=== PATIENT | female | born 1990 | race Caucasian/White ===

== ENCOUNTER 2016-06-30 14:55 | Emergency (ER) | payer OTHER ==
[~2016-06-30] VITALS: Ht 172.7 cm; Wt 80.0 kg
[2016-06-30 14:57] VITALS: BP 121/57; PULSE 57; RESP 12; TEMP 98; O2SAT 97
[2016-06-30] MEDS ORDERED: IBUP800T23 PO (15:35)
[2016-06-30] MEDS ORDERED: ROBA500T PO (15:35)
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
== END 2016-06-30 16:03 | disposition home or self-care (01) ==
LOC: NETRI 14:55
DX: Z04.1 Encounter for examination and observation following transport accident (principal)
CPT/HCPCS: 99283

== ENCOUNTER 2017-02-16 01:48 | Inpatient (IN) | payer SELFPAY ==
[2017-02-16] VITALS (8 sets, daily range): BP systolic 103–128; BP diastolic 55–77; PULSE 50–94; RESP 16–24; TEMP 98.5–99.3; O2SAT 98–100
[~2017-02-16] VITALS: Ht 172.7 cm; Wt 72.3 kg
[~2017-02-16 01:48] MED LIST: IBUP1TAB7 PO; ROBA500T PO
--- NOTE | 2017-02-16 02:04 | PD ---
HPI Chief Complaint: suicidal ideation Time Seen by Provider: 01:57 Travel History International Travel<30 days: No Contact w/Intl Traveler<30days: No Traveled to known affect area: No History of Present Illness HPI 26 year-old female presents to the emergency department by private transportation the care of her friend for evaluation of wanting to harm herself. Patient admits to wanting to jump off a bridge because she "doesn't want to be here anymore". Patient admits to previous history of suicidal ideation and suicide attempts with cutting herself an overdose. Patient denies any substance ingestion. She takes no prescription medications. Patient has history of depression and hypothyroidism. Last menstrual period was 1 month ago and normal for her; patient denies . Patient denies any previous surgeries. Patient states she takes no medications. Patient has been depressed for the past few days. Patient phoned her friend to let her know that she wanted to harm herself and was brought to the emergency room for evaluation. Patient is not sure but suspect she has a family history of mental health issues. Patient is able to identify exacerbating or alleviating factors. [facility] Past Medical History Narrative Medical Depression suicidal ideation cutting suicide attempt with overdose; denies substance use; nursing notes reviewed Social History Tobacco Use: No Allergies-Medications (Allergen,Severity, Reaction): Coded Allergies: No Known Allergies (Unverified , 02/16/17) Reported Meds & Prescriptions Reported Meds & Active Scripts Active Ibuprofen 800 Mg Tab 800 Mg PO Q6HR PRN Robaxin (Methocarbamol) 500 Mg Tab 500 Mg PO QID PRN Review of Systems Except as stated in HPI: all other systems reviewed are Neg General / Constitutional: No: Fever, Chills Eyes: No: Diploplia, Visual changes HENT: No: Headaches, Neck Pain Cardiovascular: No: Chest Pain or Discomfort Respiratory: No: Shortness of Breath Gastrointestinal: No: Nausea, Vomiting, Diarrhea, Abdominal Pain Genitourinary: No: Dysuria, Flank Pain Musculoskeletal: No: Myalgias, Arthralgias Skin: No Rash Neurologic: No: Weakness, Dizziness, Syncope Psychiatric: Positive: Anxiety, Depression, No: Substance Abuse, Homicidal Ideation Endocrine: No: Heat Intolerance Hematologic/Lymphatic: No: Easy Bruising Physical Exam Narrative GENERAL: Well-developed well-nourished cooperative female in no acute distress no respiratory distress; GCS 15 SKIN: Warm and dry. HEAD: Atraumatic. Normocephalic. EYES: Pupils equal and round. No scleral icterus. No injection or drainage. ENT: No nasal bleeding or discharge. Mucous membranes pink and moist. NECK: Trachea midline. No JVD. CARDIOVASCULAR: Regular rate and rhythm. RESPIRATORY: No accessory muscle use. Clear to auscultation. Breath sounds equal bilaterally. GASTROINTESTINAL: Abdomen soft, non-tender, nondistended. Hepatic and splenic margins not palpable. MUSCULOSKELETAL: Extremities without clubbing, cyanosis, or edema. No obvious deformities. NEUROLOGICAL: Awake and alert. No obvious cranial nerve deficits. Motor grossly within normal limits. Five out of 5 muscle strength in the arms and legs. Normal speech. PSYCHIATRIC: Appropriate mood and affect; insight and judgment normal. Data Data Last Documented VS Vital Signs Date Time Temp Pulse Resp B/P (MAP) Pulse Ox O2 Delivery O2 Flow Rate FiO2 02/16/17 02:06 99.3 52 16 117/64 (81) 100 Room Air Orders Orders Complete Blood Count With Diff (02/16/17 01:57) Comprehensive Metabolic Panel (02/16/17 01:57) Thyroid Stimulating Hormone (02/16/17 01:57) Urinalysis - C+S If Indicated (02/16/17 01:57) Ed Urine Pregnancytest Poc (02/16/17 01:57) Psych Screen (02/16/17 01:57) Drug Screen, Random Urine (02/16/17 01:57) Alcohol (Ethanol) (02/16/17 01:57) Salicylates (Aspirin) (02/16/17 01:57) Tylenol (Acetaminophen) (02/16/17 01:57) Labs Laboratory Tests Test 02/16/17 02:15 White Blood Count 5.9 TH/MM3 Red Blood Count 4.66 MIL/MM3 Hemoglobin 12.4 GM/DL Hematocrit 37.7 % Mean Corpuscular Volume 80.8 FL Mean Corpuscular Hemoglobin 26.6 PG Mean Corpuscular Hemoglobin Concent 32.9 % Red Cell Distribution Width 12.7 % Platelet Count 156 TH/MM3 Mean Platelet Volume 9.6 FL Neutrophils (%) (Auto) 61.2 % Lymphocytes (%) (Auto) 27.4 % Monocytes (%) (Auto) 8.4 % Eosinophils (%) (Auto) 1.8 % Basophils (%) (Auto) 1.2 % Neutrophils # (Auto) 3.6 TH/MM3 Lymphocytes # (Auto) 1.6 TH/MM3 Monocytes # (Auto) 0.5 TH/MM3 Eosinophils # (Auto) 0.1 TH/MM3 Basophils # (Auto) 0.1 TH/MM3 CBC Comment DIFF FINAL Differential Comment Urine Color YELLOW Urine Turbidity CLEAR Urine pH 5.5 Urine Specific [place] 1.016 Urine Protein NEG mg/dL Urine Glucose (UA) NEG mg/dL Urine Ketones NEG mg/dL Urine Occult Blood NEG Urine Nitrite NEG Urine Bilirubin NEG Urine Leukocyte Esterase NEG Urine WBC 3-5 /hpf Urine Squamous Epithelial Cells 0-5 /hpf Urine Bacteria RARE /hpf Urine Mucus OCC /lpf Microscopic Urinalysis Comment CULT NOT INDICATED Blood Urea Nitrogen 13 MG/DL Creatinine 0.79 MG/DL Random Glucose 105 MG/DL Total Protein 7.1 GM/DL Albumin 4.0 GM/DL Calcium Level 8.9 MG/DL Alkaline Phosphatase 61 U/L Aspartate Amino Transf (AST/SGOT) 13 U/L Alanine Aminotransferase (ALT/SGPT) 20 U/L Total Bilirubin 0.3 MG/DL Sodium Level 140 MEQ/L Potassium Level 3.7 MEQ/L Chloride Level 109 MEQ/L Carbon Dioxide Level 25.7 MEQ/L Anion Gap 5 MEQ/L Estimat Glomerular Filtration Rate 88 ML/MIN Thyroid Stimulating Hormone 3rd Gen 6.360 uIU/ML Salicylates Level LESS THAN 1.7 MG/DL Urine Opiates Screen NEG Acetaminophen Level LESS THAN 2.0 MCG/ML Urine Barbiturates Screen NEG Urine Amphetamines Screen NEG Urine Benzodiazepines Screen NEG Urine Cocaine Screen NEG Urine Cannabinoids Screen NEG Ethyl Alcohol Level LESS THAN 3 MG/DL MDM Medical Decision Making Medical Screen Exam Complete: Yes Emergency Medical Condition: Yes Medical Record Reviewed: Yes Interpretation(s) CBC & BMP Diagram 02/16/17 02:15 Total Protein 7.1, Albumin 4.0, Calcium Level 8.9, Alkaline Phosphatase 61, Aspartate Amino Transf (AST/SGOT) 13 L, Alanine Aminotransferase (ALT/SGPT) 20, Total Bilirubin 0.3 Vital Signs Date Time Temp Pulse Resp B/P (MAP) Pulse Ox O2 Delivery O2 Flow Rate FiO2 02/16/17 02:06 99.3 52 16 117/64 (81) 100 Room Air 02/16/17 02:03 Room Air 02/16/17 01:58 16 poc hcg: negative tsh: 6.360 elevated --h/o hypothyroidism uds: negative acetaminophen: ; salicylate: UA: grossly wnl alcohol: negative Differential Diagnosis Depression, suicidal ideation, mood disorder, thyroid dysfunction, electronic disturbance, metabolic disturbance Narrative Course Patient with admitted suicidal ideation reporting that she "does not want to be here anymore" and "wants to jump off of a bridge"; specimens collected and sent for resulting [place] act signed by me. Specimens collected and sent for resulting CBC is automated differential and chemistries grossly within normal range TSH is elevated at 6.360 twice upper limit of normal however patient does have known established history of hypothyroidism has been out of her medication as she ran out of her medicine and has no insurance; patient will need to restart thyroid replacement. [id number] hCG is negative; urine drug screen is negative; salicylate and acetaminophen levels are not elevated serum alcohol is less than 3, elevated Patient is medically cleared for psych screening for [place] act suicidal ideation at 3:35 AM Diagnosis Primary Impression: Suicidal ideation Additional Impressions: Depression Qualified Codes: F32.9 - Major depressive disorder, single episode, unspecified H/O: hypothyroidism Arely Del Valle MD Feb 16, 2017 02:04
[2017-02-16 02:28] LABS: AUTOMATED NEUTROPHIL # 3.6 TH/MM3 (1.8-7.7); BASOPHIL # 0.1 TH/MM3 (0-0.2); BASOPHIL % 1.2 % (0.0-2.0); EOSINOPHIL # 0.1 TH/MM3 (0-0.4); EOSINOPHIL % 1.8 % (0.0-4.0); HEMATOCRIT 37.7 % (35.0-46.0); HEMO FLAGS DIFF FINAL; LYMPH % 27.4 % (9.0-44.0); LYMPHOCYTE # 1.6 TH/MM3 (1.0-4.8); MEAN CELL VOLUME 80.8 FL (80.0-100.0); MEAN CORPUSCULAR HEMOGLOBIN 26.6 PG (27.0-34.0); MEAN CORPUSCULAR HGB CONC 32.9 % (32.0-36.0); MONO % 8.4 % (0.0-8.0); NEUT % 61.2 % (16.0-70.0); PLATELET COUNT 156 TH/MM3 (150-450); RED BLOOD COUNT 4.66 MIL/MM3 (4.00-5.30); RED CELL DISTRIBUTION WIDTH 12.7 % (11.6-17.2); WHITE BLOOD COUNT 5.9 TH/MM3 (4.0-11.0)
[2017-02-16 02:30] LABS: BLOOD, URINE NEG (NEG); GLUCOSE,URINE NEG (NEG); KETONE, URINE NEG (NEG); NITRITE,URINE NEG (NEG); PH, URINE 5.5 (5.0-8.5)
[2017-02-16 02:37] LABS: CHLORIDE 109 MEQ/L (98-107); POTASSIUM 3.7 MEQ/L (3.5-5.1); SODIUM (NA) 140 MEQ/L (136-145)
[2017-02-16 02:40] LABS: ANION GAP 5 MEQ/L (5-15); BICARBONATE 25.7 MEQ/L (21.0-32.0)
[2017-02-16 02:41] LABS: BLOOD UREA NITROGEN 13 MG/DL (7-18)
[2017-02-16 02:42] LABS: MUCUS URINE OCC /lpf (OCC); URINE COLOR YELLOW (YELLW/STRAW)
[2017-02-16 02:43] LABS: ALT (GPT) 20 U/L (10-53); AST (GOT) 13 U/L (15-37); GLOMERULAR FILTRATION RATE 88 ML/MIN (>89); SQUAMOUS EPITHELIAL CELL URINE 0-5 /hpf (0-5)
[2017-02-16 02:45] LABS: TOTAL BILIRUBIN ADULT 0.3 MG/DL (0.2-1.0)
[2017-02-16 02:46] LABS: ALKALINE PHOSPHATASE 61 U/L (45-117); BACTERIA, URINE RARE /hpf; COMMENT (UR) CULT NOT INDICATED; CULTURE IF INDICATED CULT NOT INDICATED
[2017-02-16 02:48] LABS: ALCOHOL LESS THAN 3 MG/DL (0-5)
[2017-02-16 03:32] LABS: ACETAMINOPHEN LESS THAN 2.0 MCG/ML (10.0-30.0)
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
[2017-02-16] MEDS ORDERED: ALUMINUM/MAGNESIUM/SIMETH 30 ML CUP PO PRN (19:00)
[2017-02-16] MEDS ORDERED: MAGNESIUM HYDROXIDE SUSP 30 ML CUP PO PRN (19:00)
[2017-02-16] MEDS ORDERED: diphenhydrAMINE HCL 50 MG CAP PO PRN (19:00)
[2017-02-16] MEDS ORDERED: traZODone HCL 50 MG TAB PO PRN (19:00)
[2017-02-17 05:36] VITALS: BP 102/57; PULSE 49; RESP 18; TEMP 97.1; O2SAT 98
[2017-02-17 07:57] LABS: ANION GAP 9 MEQ/L (5-15); BICARBONATE 25.9 MEQ/L (21.0-32.0); CHLORIDE 109 MEQ/L (98-107); GLOMERULAR FILTRATION RATE 72 ML/MIN (>89); POTASSIUM 4.5 MEQ/L (3.5-5.1); SODIUM (NA) 144 MEQ/L (136-145)
[2017-02-17 08:04] LABS: BLOOD UREA NITROGEN 12 MG/DL (7-18); FREE T4 0.92 NG/DL (0.76-1.46); HDL CHOLESTEROL 67.8 MG/DL (40.0-60.0); LDL CHOLESTEROL 50 MG/DL (0-99)
[2017-02-17] MEDS ORDERED: hydrOXYzine HCL 25 MG TAB PO PRN (11:15)
[2017-02-17] MEDS ORDERED: diphenhydrAMINE HCL 50 MG CAP PO PRN (11:15)
[2017-02-17] MEDS ORDERED: VENLAFAXINE HCL XR 37.5 MG CAP PO ONE (11:15)
[2017-02-17] MEDS ORDERED: ARIPiprazole 5 MG TAB PO ONE (11:15)
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
[2017-02-17 12:42] LABS: HEMOGLOBIN A1a 1.4 %; HEMOGLOBIN A1b 1.3 %; HEMOGLOBIN Ao 86.3 %; HEMOGLOBIN LA1C 1.8 %; HEMOGLOBIN P3 3.3 %
[2017-02-17 18:18] VITALS: BP 102/57; PULSE 52; RESP 16; TEMP 98.1; O2SAT 99
[2017-02-17] MEDS: ACETAMINOPHEN 325 MG TAB PO PRN (23:39)
[2017-02-18 05:41] VITALS: BP 103/55; PULSE 70; RESP 16; TEMP 97.3; O2SAT 98
[2017-02-18] MEDS: ARIPiprazole 10 MG TAB PO SCH (09:18)
[2017-02-18] MEDS: VENLAFAXINE HCL XR 75 MG CAP PO SCH (09:18)
--- NOTE | 2017-02-18 10:45 | EKG ---
Date Performed: 02/17/2017 Time Performed: 14:05:14 PTAGE: 26 years EKG: SINUS BRADYCARDIA BORDERLINE ECG NO PREVIOUS TRACING DOCTOR: Mert Giordano Interpretating Date/Time 02/18/2017 10:43:50
--- NOTE | 2017-02-18 11:19 | HHI.PYPN ---
Subjective Chief Complaint: increasing depressive symptoms along with suicidal ideation with plan Remarks Patient seen for follow-up, chart reviewed. Discussion she staff reported the patient had 2 episodes of emesis last evening, continue to be noted to have flat affect along with endorsing auditory hallucinations in a self-deprecating, denies suicidal ideations and had had poor sleep last evening. She found lying in hospital bed, cooperative. Patient states that she had vomiting last evening reports some lower abdominal pain that is mild continues to have some nausea this morning but has not had any emesis since last evening. Patient reports that her mood has been feeling "fine", reports that her depression is "less" but continues to be noted to be very dysphoric, denies suicide ideation at this time stating that last and she experiences was yesterday. Patient reports continued auditory hallucinations that are command in nature as well as providing negative comments to her but states that they are slightly improving. Patient reports lethargy spheres auditory hallucination was this morning. Review of Systems Gastrointestinal: COMPLAINS OF: Abdominal pain, Nausea Except as stated in HPI: all other systems reviewed are Neg Mental Status Examination Appearance: Appropriate Consciousness: Alert Orientation: x4 Motor Activity: Normal gait Speech: Unremarkable Language: Adequate Fund of Knowledge: Adequate Attention and Concentration: Adequate Memory: Unremarkable Mood: Sad Affect: Sad Thought Process & Associations: Intact Thought Content: Appropriate Hallucination Type: Auditory (Negative, derogatory. and command type to kill herself) Delusion Type: None Suicidal Ideation: Yes Suicidal Plan: Yes Suicidal Intention: Yes Homicidal Ideation: No Homicidal Plan: No Homicidal Intention: No Insight: Fair Judgment: Impulsive Results Vitals/IOs Vital Signs Date Time Temp Pulse Resp B/P (MAP) Pulse Ox O2 Delivery O2 Flow Rate FiO2 02/18/17 05:41 97.3 70 16 103/55 (71) 98 02/16/17 14:18 Room Air Assessment & Plan Problem List: (1) Bipolar disorder with psychotic features ICD Codes: F31.9 - Bipolar disorder, unspecified Status: Acute Assessment & Plan Patient at this time continues to be depressed along with recent suicidal ideations as well as continued auditory hallucinations. Patient with increase in Abilify to 10 mg by mouth daily for psychosis along with venlafaxine XR 75 g by mouth daily for depression. Patient recent report of nausea and GI upset likely secondary adverse drug reactions to SNRI. We'll continue current treatment as GI side effects tend to subside with continued use but will continue to monitor. If GI side effects do not subside or worsen will consider switching patient to a different antidepressant. Continue to monitor mood and behavior as well as adverse drug reactions to treatment. Continue to encourage maintenance of personal hygiene as well as participation in groups and activities while on the unit. Discharge planning in progress Justification for Cont. Inpt. At risk for further decompensation at lower level of care Discharge Planning Patient to return back to her parent's residence once psychiatrically stable Brandin Lee MD Feb 18, 2017 11:19
[2017-02-18 16:48] VITALS: BP 110/70; PULSE 60; RESP 16; TEMP 98.4; O2SAT 97
[2017-02-19 05:42] VITALS: BP 102/54; PULSE 54; RESP 18; TEMP 98; O2SAT 97
[2017-02-19] MEDS: ARIPiprazole 10 MG TAB PO SCH (08:46)
[2017-02-19] MEDS: VENLAFAXINE HCL XR 75 MG CAP PO SCH (08:46)
--- NOTE | 2017-02-19 14:41 | HHI.PYPN ---
Subjective Chief Complaint: increasing depressive symptoms along with suicidal ideation with plan Remarks Patient seen for follow-up, chart reviewed. Discussion with nursing staff reported the patient reported feeling drowsy in the morning, not endorsing SI, and auditory hallucinations evident better. Patient found lying in hospital bed , cooperative patient states that her mood as "better", although continues to feel depressed but does states being "not bad today". Patient denies any suicidal ideations at this time last time being yesterday. Patient reports continued auditory hallucination but now has been less intense and is now "more distant". She reports having spoken to her family had a visit with her friends and siblings which went well. Review of Systems Except as stated in HPI: all other systems reviewed are Neg Mental Status Examination Appearance: Appropriate Consciousness: Alert Orientation: x4 Motor Activity: Normal gait Speech: Unremarkable Language: Adequate Fund of Knowledge: Adequate Attention and Concentration: Adequate Memory: Unremarkable Mood: Sad Affect: Sad (able to smile once during interview) Thought Process & Associations: Intact Thought Content: Appropriate Hallucination Type: Auditory (Negative, derogatory. and command type to kill herself) Delusion Type: None Suicidal Ideation: Yes (denies today) Suicidal Plan: No Suicidal Intention: No Homicidal Ideation: No Homicidal Plan: No Homicidal Intention: No Insight: Fair Judgment: Impulsive Results Vitals/IOs Vital Signs Date Time Temp Pulse Resp B/P (MAP) Pulse Ox O2 Delivery O2 Flow Rate FiO2 02/19/17 05:42 98.0 54 18 102/54 (70) 97 02/16/17 14:18 Room Air Assessment & Plan Problem List: (1) Bipolar disorder with psychotic features ICD Codes: F31.9 - Bipolar disorder, unspecified Status: Acute Assessment & Plan Patient continues to have depressive symptoms along with suicidal ideation which has ceased since yesterday. Patient continues to have auditory hallucinations but appears to be improving. We'll increase Abilify to 5 mg a.m. and 10 mg at bedtime, continue Effexor XR for depression. Continue rest of medications. Discharge planning in progress Justification for Cont. Inpt. At risk for further decompensation if at lower level of care Discharge Planning Patient to be discharged back to her parent's residence once psychiatrically stable Brandin Lee MD Feb 19, 2017 14:41
[2017-02-19 18:00] VITALS: BP 108/55; PULSE 69; RESP 18; TEMP 98.6; O2SAT 97
[2017-02-20 06:13] VITALS: BP 115/56; PULSE 83; RESP 18; TEMP 98.5; O2SAT 97
[2017-02-20] MEDS: ARIPiprazole 5 MG TAB PO SCH (09:12)
[2017-02-20] MEDS: VENLAFAXINE HCL XR 75 MG CAP PO SCH (09:12)
--- NOTE | 2017-02-20 12:45 | HHI.PYPN ---
Subjective Chief Complaint: increasing depressive symptoms along with suicidal ideation with plan Remarks Patient was seen and case discussed with nursing. Patient is pleasant and cooperative with exam. Affect is shy and somewhat childlike. Says she had a productive conversations with her family members on the phone. Insight remains poor concerning her admission. Says she no longer has suicidal homicidal ideations thought intent or plan. Sleeping well. Tolerating medications well Mental Status Examination Appearance: Appropriate Consciousness: Alert Orientation: x4 Motor Activity: Normal gait Speech: Unremarkable Language: Adequate Fund of Knowledge: Adequate Attention and Concentration: Adequate Memory: Unremarkable Mood: Sad Affect: Other (shy) Thought Process & Associations: Intact Thought Content: Appropriate Hallucination Type: Auditory (Negative, derogatory. and command type to kill herself) Delusion Type: None Suicidal Ideation: No Suicidal Plan: No Suicidal Intention: No Homicidal Ideation: No Homicidal Plan: No Homicidal Intention: No Insight: Poor Judgment: Impulsive Results Vitals/IOs Vital Signs Date Time Temp Pulse Resp B/P (MAP) Pulse Ox O2 Delivery O2 Flow Rate FiO2 02/20/17 06:13 98.5 83 18 115/56 (75) 97 02/16/17 14:18 Room Air Intake and Output 02/20/17 02/20/17 02/21/17 08:00 16:00 00:00 Intake Total 480 ml Balance 480 ml Assessment & Plan Problem List: (1) Bipolar disorder with psychotic features ICD Codes: F31.9 - Bipolar disorder, unspecified Status: Acute Assessment & Plan Continue current treatment plan Justification for Cont. Inpt. Patient would decompensate in a less restrictive setting Dale Nelson DO Feb 20, 2017 12:44
[2017-02-20] MEDS: ACETAMINOPHEN 325 MG TAB PO PRN (17:21)
[2017-02-20 18:00] VITALS: BP 109/56; PULSE 70; RESP 18; TEMP 98.5; O2SAT 98
[2017-02-20] MEDS: ARIPiprazole 10 MG TAB PO SCH (20:35)
[2017-02-21 06:00] VITALS: BP 97/60; PULSE 71; RESP 20; TEMP 97.4
[2017-02-21] MEDS: VENLAFAXINE HCL XR 75 MG CAP PO SCH (08:49)
[2017-02-21] MEDS: ARIPiprazole 5 MG TAB PO SCH (08:49)
--- NOTE | 2017-02-21 13:38 | HHI.PYPN ---
Subjective Chief Complaint: increasing depressive symptoms along with suicidal ideation with plan Remarks Patient was seen and case discussed with nursing. Patient describes her mood is "bored." Affect is brighter compared to yesterday. Denies suicidal or homicidal ideation intent or plan. Tolerating medications well. Patient says that she is sleeping and eating well looking forward to the visitor at 3 PM. Mental Status Examination Appearance: Appropriate Consciousness: Alert Orientation: x4 Motor Activity: Normal gait Speech: Unremarkable Language: Adequate Fund of Knowledge: Adequate Attention and Concentration: Adequate Memory: Unremarkable Mood: Appropriate Affect: Appropriate Thought Process & Associations: Intact Thought Content: Appropriate Hallucination Type: Auditory (denies today) Delusion Type: None Suicidal Ideation: No Suicidal Plan: No Suicidal Intention: No Homicidal Ideation: No Homicidal Plan: No Homicidal Intention: No Insight: Poor Judgment: Impulsive Results Vitals/IOs Vital Signs Date Time Temp Pulse Resp B/P (MAP) Pulse Ox O2 Delivery O2 Flow Rate FiO2 02/21/17 06:00 97.4 71 20 97/60 (72) 02/20/17 18:00 98 Assessment & Plan Problem List: (1) Bipolar disorder with psychotic features ICD Codes: F31.9 - Bipolar disorder, unspecified Status: Acute Assessment & Plan Continue current treatment plan Justification for Cont. Inpt. Patient will decompensate in a less restrictive setting Dale Nelson DO Feb 21, 2017 13:38
[2017-02-21 18:20] VITALS: BP 102/60; PULSE 64; RESP 18; TEMP 98.3; O2SAT 99
[2017-02-21] MEDS: ARIPiprazole 10 MG TAB PO SCH (20:05)
[2017-02-21] MEDS: ACETAMINOPHEN 325 MG TAB PO PRN (20:23)
[2017-02-22 05:35] VITALS: BP 93/58; PULSE 53; RESP 17; TEMP 98.8; O2SAT 98
[2017-02-22] MEDS: VENLAFAXINE HCL XR 75 MG CAP PO SCH (09:44)
[2017-02-22] MEDS: ARIPiprazole 5 MG TAB PO SCH (09:45)
--- NOTE | 2017-02-22 09:46 | PD.TTN ---
Patient Problems 1. Discharge planning 2. Medication compliance 3. Knowledge deficit 4. Lack of coping skills Progress Toward Goals Provider Present: Dr. Alethea Lee Provider Input: Patient had an increase in medications on Wednesday and will continue to be monitored for progress. Patient denies any side effects from medications and is currently denying suicidal ideations. Nurse(s) Input: Patient is compliant with medications and is appropriately interacting with peers. Patient is sleeping well and is denying suicidal ideations. Psychiatric Counselors Present: SEPIDEH Fontaine Psych Therapist Input: Patient is cooperative and pleasant is able to answer questions appropriately. Patient has realistic goals in regards to discharge. Group Spec/RT/OT/MART Present: Rob Espinoza OT Group Spec/RT/OT/MART Input: Patient attends all groups and is engaging and socalizes with peers. [facility]ulee Holt [facility] Feb 22, 2017 09:46
[2017-02-22] MEDS ORDERED: ARIP1TAB11 PO (11:27)
[2017-02-22] MEDS ORDERED: ARIP1TAB12 PO (11:27)
[2017-02-22] MEDS ORDERED: VENL75XR PO (11:27)
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
== END 2017-02-22 13:45 | disposition home or self-care (01) | DRG 885 ==
LOC: PHED 01:48 → NEDA 18:56 → H260 19:44 → H250 02-17 11:04 → H260 02-21 19:18
PROVIDERS: ADMIT Student in an Organized Health Care Education/Training Program; ATTEND Student in an Organized Health Care Education/Training Program
DX: F31.9 Bipolar disorder, unspecified (principal); R45.851 Suicidal ideations; F29 Unspecified psychosis not due to a substance or known physiological condition; F60.3 Borderline personality disorder; Z91.5 Personal history of self-harm; Z81.8 Family history of other mental and behavioral disorders; F43.10 Post-traumatic stress disorder, unspecified; E03.9 Hypothyroidism, unspecified; Z62.810 Personal history of physical and sexual abuse in childhood; R11.2 Nausea with vomiting, unspecified; R10.30 Lower abdominal pain, unspecified
CPT/HCPCS: 80048; 80053; 80061; 80307; 81001; 83036; 84439; 84443; 84703; 85025; 93005

== ENCOUNTER 2017-07-26 21:23 | Emergency (ER) | payer SELFPAY ==
[~2017-07-26] VITALS: Ht 172.7 cm; Wt 75.0 kg
[~2017-07-26 21:23] MED LIST changes: +ARIP1TAB11 PO; +ARIP1TAB12 PO; -IBUP1TAB7 PO; -ROBA500T PO; +VENL75XR PO
[2017-07-26 21:27] VITALS: BP 113/58; PULSE 70; RESP 18; TEMP 97.7; O2SAT 100
[2017-07-26 22:16] LABS: AUTOMATED NEUTROPHIL # 3.9 TH/MM3 (1.8-7.7); BASOPHIL # 0.1 TH/MM3 (0-0.2); BASOPHIL % 0.8 % (0.0-2.0); EOSINOPHIL # 0.1 TH/MM3 (0-0.4); EOSINOPHIL % 1.5 % (0.0-4.0); HEMATOCRIT 37.7 % (35.0-46.0); HEMOGLOBIN 12.9 GM/DL (11.6-15.3); LYMPH % 28.1 % (9.0-44.0); LYMPHOCYTE # 1.9 TH/MM3 (1.0-4.8); MEAN CELL VOLUME 81.2 FL (80.0-100.0); MEAN CORPUSCULAR HEMOGLOBIN 27.7 PG (27.0-34.0); MEAN CORPUSCULAR HGB CONC 34.2 % (32.0-36.0); MEAN PLATELET VOLUME 9.7 FL (7.0-11.0); MONOCYTE # 0.8 TH/MM3 (0-0.9); NEUT % 57.6 % (16.0-70.0); PLATELET COUNT 172 TH/MM3 (150-450); RED BLOOD COUNT 4.64 MIL/MM3 (4.00-5.30); RED CELL DISTRIBUTION WIDTH 13.7 % (11.6-17.2); WHITE BLOOD COUNT 6.8 TH/MM3 (4.0-11.0)
[2017-07-26 22:44] LABS: ALBUMIN 4.1 GM/DL (3.4-5.0); ALT (GPT) 21 U/L (10-53); AST (GOT) 19 U/L (15-37); BICARBONATE 28.3 MEQ/L (21.0-32.0); BLOOD UREA NITROGEN 10 MG/DL (7-18); CALCIUM 8.5 MG/DL (8.5-10.1); CHLORIDE 109 MEQ/L (98-107); CREATININE 0.94 MG/DL (0.50-1.00); GLOMERULAR FILTRATION RATE 71 ML/MIN (>89); GLUCOSE,RANDOM 96 MG/DL (74-106); SODIUM (NA) 143 MEQ/L (136-145)
[2017-07-26 22:54] LABS: ALKALINE PHOSPHATASE 67 U/L (45-117); TOTAL BILIRUBIN ADULT 0.3 MG/DL (0.2-1.0); TOTAL PROTEIN 7.3 GM/DL (6.4-8.2)
[2017-07-26] MEDS ORDERED: BREX1TAB3 PO (23:00)
[2017-07-26] MEDS ORDERED: ABIL20TA5 PO (23:00)
[2017-07-26 23:16] LABS: ACETAMINOPHEN LESS THAN 2.0 MCG/ML (10.0-30.0)
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
[2017-07-27 02:43] VITALS: BP 110/58; PULSE 58; RESP 18; O2SAT 99
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
--- NOTE | 2017-07-27 12:19 | PD ---
Physical Exam Time Seen by Provider: 12:17 FLORENTINO Slater has evaluated the patient and cleared the patient for discharge. Patient has a follow-up appointment at [facility] today. Data Data Last Documented VS Vital Signs Date Time Temp Pulse Resp B/P (MAP) Pulse Ox O2 Delivery O2 Flow Rate FiO2 07/27/17 02:43 58 18 110/58 (75) 99 Room Air 07/26/17 21:27 97.7 Orders Orders Complete Blood Count With Diff (07/26/17 21:30) Comprehensive Metabolic Panel (07/26/17 21:30) Thyroid Stimulating Hormone (07/26/17 21:30) Ed Urine Pregnancytest Poc (07/26/17 21:30) Psych Screen (07/26/17 21:30) Drug Screen, Random Urine (07/26/17 21:30) Alcohol (Ethanol) (07/26/17 21:30) Salicylates (Aspirin) (07/26/17 21:30) Tylenol (Acetaminophen) (07/26/17 21:30) Diet Regular Basic (07/27/17 Breakfast) Diet Regular Basic (07/27/17 Lunch) Ed Discharge Order (07/27/17 12:19) Labs Laboratory Tests Test 07/26/17 21:50 White Blood Count 6.8 TH/MM3 Red Blood Count 4.64 MIL/MM3 Hemoglobin 12.9 GM/DL Hematocrit 37.7 % Mean Corpuscular Volume 81.2 FL Mean Corpuscular Hemoglobin 27.7 PG Mean Corpuscular Hemoglobin Concent 34.2 % Red Cell Distribution Width 13.7 % Platelet Count 172 TH/MM3 Mean Platelet Volume 9.7 FL Neutrophils (%) (Auto) 57.6 % Lymphocytes (%) (Auto) 28.1 % Monocytes (%) (Auto) 12.0 % Eosinophils (%) (Auto) 1.5 % Basophils (%) (Auto) 0.8 % Neutrophils # (Auto) 3.9 TH/MM3 Lymphocytes # (Auto) 1.9 TH/MM3 Monocytes # (Auto) 0.8 TH/MM3 Eosinophils # (Auto) 0.1 TH/MM3 Basophils # (Auto) 0.1 TH/MM3 CBC Comment DIFF FINAL Differential Comment Blood Urea Nitrogen 10 MG/DL Creatinine 0.94 MG/DL Random Glucose 96 MG/DL Total Protein 7.3 GM/DL Albumin 4.1 GM/DL Calcium Level 8.5 MG/DL Alkaline Phosphatase 67 U/L Aspartate Amino Transf (AST/SGOT) 19 U/L Alanine Aminotransferase (ALT/SGPT) 21 U/L Total Bilirubin 0.3 MG/DL Sodium Level 143 MEQ/L Potassium Level 3.7 MEQ/L Chloride Level 109 MEQ/L Carbon Dioxide Level 28.3 MEQ/L Anion Gap 6 MEQ/L Estimat Glomerular Filtration Rate 71 ML/MIN Thyroid Stimulating Hormone 3rd Gen 5.160 uIU/ML Salicylates Level LESS THAN 1.7 MG/DL Urine Opiates Screen NEG Acetaminophen Level LESS THAN 2.0 MCG/ML Urine Barbiturates Screen NEG Urine Amphetamines Screen NEG Urine Benzodiazepines Screen NEG Urine Cocaine Screen NEG Urine Cannabinoids Screen NEG Ethyl Alcohol Level LESS THAN 3 MG/DL MDM Supervised Visit with [facility]: No Narrative Course FLORENTINO Mina has evaluated the patient and cleared the patient for discharge. Patient has a follow-up appointment at [facility]. Patient contracts safety. Denies suicidal or homicidal ideations. Patient will be provided community resource packet to [facility] for follow-up. Has friends and family for support. Patient was medically cleared by alternate provider prior to psych screening. Patient has been evaluated by psychiatry and and is now cleared for discharge. Diagnosis Primary Impression: Adjustment disorder Qualified Codes: F43.20 - Adjustment disorder, unspecified Referrals: [facility] (Out patient) [facility] Primary Care Physician Psychiatrist [facility] Patient Instructions: General Instructions Departure Forms: Tests/Procedures Additional Instruction: Contract safety to your self and others Follow-up with psychiatry Follow-up with primary care provider Follow-up with [facility] Return to the emergency department immediately with worsening of symptoms Med/Other Pt SpecificInfo: No Change to Meds, No Meds Exist/No RX given Disposition: 01 DISCHARGE HOME Condition: Stable Paige Matrinez July 27, 2017 12:19
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
== END 2017-07-27 13:15 | disposition home or self-care (01) ==
LOC: NEPD 21:23 → NEPJ 07-27 13:15
DX: F43.20 Adjustment disorder, unspecified (principal); F43.10 Post-traumatic stress disorder, unspecified; F31.9 Bipolar disorder, unspecified; F60.3 Borderline personality disorder; Z79.899 Other long term (current) drug therapy
CPT/HCPCS: 80053; 80307; 84443; 84703; 85025; 99283